=== PATIENT | female | born 1995 | race African-American/Black ===

== ENCOUNTER 2023-10-15 09:31 | Emergency (ER) | payer MEDICAID ==
[~2023-10-15] VITALS: Ht 172.7 cm; Wt 131.0 kg
[2023-10-15 09:32] VITALS: BP 138/88; PULSE 80; RESP 15; TEMP 98.1; O2SAT 100
[2023-10-15] MEDS ORDERED: CLOT15CR27 TP (10:32)
== END 2023-10-15 10:40 | disposition home or self-care (01) ==
LOC: ER 09:31
DX: B35.4 Tinea corporis (principal)
CPT/HCPCS: 99281; 99282